=== PATIENT | male | born 1960 | race Caucasian/White ===

== ENCOUNTER 2020-06-27 14:07 | Outpatient (CLI) | payer MEDICAID, SELFPAY ==
--- NOTE | 2020-06-27 14:23 | XR_ITS ---
WS: [id number] LUMBAR SPINE FLEXION AND EXTENSION TECHNIQUE: 3 views of the lumbar spine: Lateral neutral, flexion, and extension views. CLINICAL INFORMATION: LOW BACK PAIN COMPARISON: None. FINDINGS: Normal lumbar alignment on the neutral view. No instability on the flexion and extension views. Disc space narrowing L4-L5 and L5-S1 worse L4-L5 with endplate sclerosis. Mild facet arthropathy L4-L 5 and L5-S1. XR/XR lumbar spine f/e only [id number] IMPRESSION: 1. No instability on flexion-extension. 2. Disc space narrowing worse L4-L5 and L5-S1.
== END 2020-06-27 14:08 | disposition home or self-care (01) ==
LOC: RADWPI 14:17
PROVIDERS: Visit Provider Nurse Practitioner
DX: M54.5 Low back pain (principal)
CPT/HCPCS: 72120